=== PATIENT | male | born 1935 | race Asian ===

== ENCOUNTER 2021-02-01 17:23 | Inpatient (IN) | payer OTHER ==
[2021-02-01] MEDS ORDERED: morphine CARPU-JECT 2 MG/1 ML DISP.SYRIN IVPUSH ONE (18:27)
[2021-02-01] MEDS ORDERED: MORPHINE SULFATE 2 MG/ML VIAL ONE (18:43)
[2021-02-01] MEDS ORDERED: HYDROmorphone HCL CARPU-JECT 2 MG/1 ML DISP.SYRIN IVPUSH ONE ×2 (19:00→20:37)
[2021-02-01 19:03] LABS: VENOUS BASE EXCESS -1.5 mmol/L (-2-2); VENOUS O2 SATURATION 84.1 % (70-80); VENOUS PH 7.371 (7.310-7.410)
[2021-02-01 19:11] LABS: BASO % 0.1 % (0-2.0); HEMATOCRIT 42.1 % (35.4-49); LYMPH % 4.5 % (8-40); MCH 30.8 pg (25.7-33.7); MCHC 33.3 g/dl (32.0-35.9); MEAN CELL VOLUME 92.6 fl (80-96); MEAN PLT VOLUME 9.1 fl (7.5-11.1); MONO % 6.9 % (3.8-10.2); NEUT % 88.5 % (42.8-82.8); PLATELET COUNT 182 K/MM3 (134-434); RBC 4.55 M/mm3 (4.00-5.60); RDW 14.2 % (11.9-15.9)
[2021-02-01] MEDS ORDERED: HYDROmorphone HCl 2 MG/ML VIAL ONE ×2 (19:18→20:52)
[2021-02-01 19:20] LABS: CHLORIDE 105 mmol/L (98-107); SODIUM 137 mmol/L (136-145)
[2021-02-01 19:21] LABS: INR 0.98 (0.83-1.09); PROTHROMBIN TIME (PATIENT) 12.1 SEC (9.7-13.0)
[2021-02-01 19:23] LABS: ACTIVATED PTT 28.5 SECONDS (25.2-36.5); ALBUMIN 4.1 g/dl (3.4-5.0); ANION GAP 7 MMOL/L (8-16); BLOOD UREA NITROGEN 26.7 mg/dL (7-18); CALCIUM 9.7 mg/dL (8.5-10.1); CO2 25 mmol/L (21-32); GLUCOSE,RANDOM 138 mg/dL (74-106); LIPASE 92 U/L (73-393)
[2021-02-01 19:25] LABS: SGPT/ALT 24 U/L (13-61)
[2021-02-01 19:27] LABS: BILIRUBIN,TOTAL 1.1 mg/dL (0.2-1); SGOT/AST 15 U/L (15-37); TOT PROT 7.6 g/dl (6.4-8.2)
[2021-02-01 19:29] LABS: ALK PHOS 59 U/L (45-117)
[2021-02-01 19:55] LABS: EPI CELLS 3 /uL (0-25.1); HYALINE CASTS 1 /uL (0-3.1); URINE APPEARANCE CLEAR; URINE BACTERIA 4 /uL (0-1359); URINE BILIRUBIN NEGATIVE (NEGATIVE); URINE COLOR YELLOW; URINE GLUCOSE (UA) 2+ (NEGATIVE); URINE KETONE TRACE (NEGATIVE); URINE LEUK ESTERASE NEGATIVE (NEGATIVE); URINE NITRITE NEGATIVE (NEGATIVE); URINE PROTEIN NEGATIVE (NEGATIVE); URINE RBC 15 /uL (0-23.9); URINE UROBILINOGEN 0.2 mg/dL (0.2-1.0); URINE WBC 12 /uL (0-25.8)
[2021-02-01] MEDS ORDERED: MEROPENEM 1 GM in DEXTROSE 5%-WATER 100 ML IVPB ONE (21:03)
[2021-02-01] MEDS ORDERED: SODIUM CHLORIDE 0.9% 500 ML INFUS.BAG IV ONE (21:09)
[2021-02-01] MEDS ORDERED: MEROPENEM 1 GM VIAL (RESTRICTED TO ID) IVPB ONE (21:11)
[2021-02-01] MEDS ORDERED: ONDANSETRON 4 MG/2 ML VIAL IVPUSH ONE (21:56)
[2021-02-01] MEDS ORDERED: ONDANSETRON 4 MG/2 ML VIAL ONE (22:00)
[2021-02-01] MEDS ORDERED: LACTATED RINGERS SOLUTION 1,000 ML IV SCH (23:00)
[2021-02-01] MEDS ORDERED: ACETAMINOPHEN 1000 MG/100 ML VIAL (NON FORMULARY) IVPB PRN (23:02)
[2021-02-02] MEDS: SODIUM CHLORIDE 1,000 ML IV SCH ×2 (00:35→23:55)
[2021-02-02] MEDS ORDERED: HYDROmorphone HCl 2 MG/ML VIAL ONE ×3 (06:11→20:37)
[2021-02-02] MEDS: HYDROmorphone HCL CARPU-JECT 2 MG/1 ML DISP.SYRIN IVPUSH PRN ×3 (06:17→20:40)
[2021-02-02] MEDS: PANTOPRAZOLE 40 MG TABLET PO SCH (07:00)
[2021-02-02 07:49] LABS: HEMOGLOBIN 13.2 GM/dL (11.7-16.9); MCH 31.3 pg (25.7-33.7); MCHC 33.8 g/dl (32.0-35.9); MEAN CELL VOLUME 92.4 fl (80-96); MEAN PLT VOLUME 9.2 fl (7.5-11.1); PLATELET COUNT 157 K/MM3 (134-434); RBC 4.22 M/mm3 (4.00-5.60); RDW 14.5 % (11.9-15.9); WHITE BLOOD COUNT 15.6 K/mm3 (4.0-10.0)
[2021-02-02 08:08] LABS: CALCIUM 8.6 mg/dL (8.5-10.1)
[2021-02-02 08:09] LABS: ALBUMIN 3.4 g/dl (3.4-5.0); BLOOD UREA NITROGEN 24.3 mg/dL (7-18); MAGNESIUM 2.1 mg/dL (1.8-2.4)
[2021-02-02 08:13] LABS: BILIRUBIN,TOTAL 1.4 mg/dL (0.2-1); CREATININE 0.9 mg/dL (0.55-1.3); PHOSPHOROUS 3.1 mg/dL (2.5-4.9); TOT PROT 6.4 g/dl (6.4-8.2)
[2021-02-02] MEDS: ATENOLOL 50 MG TABLET (FP) PO SCH (10:50)
[2021-02-02] MEDS: LOSARTAN POTASSIUM 50 MG TABLET PO SCH (11:05)
[2021-02-02] MEDS ORDERED: PANTOPRAZOLE 40 MG TABLET ONE (12:11)
[2021-02-02] MEDS ORDERED: LOSARTAN POTASSIUM 50 MG TABLET ONE (12:12)
[2021-02-02] MEDS ORDERED: ACETAMINOPHEN INJECTION 100 ML IVPB ONE (14:12)
[2021-02-02] MEDS ORDERED: MEROPENEM 1 GM VIAL (RESTRICTED TO ID) IVPB ONE (20:44)
[2021-02-02] MEDS: MEROPENEM 1 GM in DEXTROSE 5%-WATER 100 ML IVPB SCH (20:48)
[2021-02-02] MEDS: ROSUVASTATIN CA 5 MG TABLET (FP) PO SCH (22:20)
[2021-02-02] MEDS: ACETAMINOPHEN 1000 MG/100 ML VIAL (NON FORMULARY) IVPB PRN (23:30)
[2021-02-03] MEDS ORDERED: MEROPENEM 1 GM VIAL (RESTRICTED TO ID) IVPB ONE ×3 (01:25→18:05)
[2021-02-03] MEDS ORDERED: DEXTROSE 5%-WATER 100 ML IVPB ONE ×3 (01:25→18:06)
[2021-02-03] MEDS: MEROPENEM 1 GM in DEXTROSE 5%-WATER 100 ML IVPB SCH ×3 (01:26→18:22)
[2021-02-03] MEDS ORDERED: HYDROmorphone HCl 2 MG/ML VIAL IVPUSH PRN (01:48)
[2021-02-03] MEDS: PANTOPRAZOLE 40 MG TABLET PO SCH (06:38)
[2021-02-03 08:31] VITALS: BMI 23.4
[2021-02-03] MEDS: ACETAMINOPHEN 1000 MG/100 ML VIAL (NON FORMULARY) IVPB PRN (09:44)
[2021-02-03] MEDS: LOSARTAN POTASSIUM 50 MG TABLET PO SCH (10:03)
[2021-02-03] MEDS ORDERED: PT OWN MED DRAWER 7, Y5N ONE (10:21)
[2021-02-03] MEDS: ATENOLOL 50 MG TABLET (FP) PO SCH (10:27)
[2021-02-03 10:35] LABS: HEMATOCRIT 42.2 % (35.4-49); HEMOGLOBIN 14.2 GM/dL (11.7-16.9); MCH 31.2 pg (25.7-33.7); MCHC 33.6 g/dl (32.0-35.9); MEAN CELL VOLUME 92.8 fl (80-96); MEAN PLT VOLUME 9.6 fl (7.5-11.1); PLATELET COUNT 149 K/MM3 (134-434); RBC 4.55 M/mm3 (4.00-5.60); RDW 14.6 % (11.9-15.9); WHITE BLOOD COUNT 16.1 K/mm3 (4.0-10.0)
[2021-02-03 10:40] LABS: INR 1.3 (0.83-1.09); PROTHROMBIN TIME (PATIENT) 15.9 SEC (9.7-13.0)
[2021-02-03 10:54] LABS: ALBUMIN 3.2 g/dl (3.4-5.0); BLOOD UREA NITROGEN 27.1 mg/dL (7-18); CALCIUM 8.7 mg/dL (8.5-10.1); MAGNESIUM 2.3 mg/dL (1.8-2.4)
[2021-02-03 10:57] LABS: PHOSPHOROUS 1.8 mg/dL (2.5-4.9)
[2021-02-03 10:58] LABS: BILIRUBIN,TOTAL 1.7 mg/dL (0.2-1); TOT PROT 6.4 g/dl (6.4-8.2)
[2021-02-03] MEDS ORDERED: HYDROmorphone HCl 2 MG/ML VIAL IVPB ONE (14:47)
[2021-02-03] MEDS: DOCUSATE SODIUM 100 MG CAPSULE (FP) PO SCH (15:09)
[2021-02-03] MEDS: oxyCODONE HCL 5 MG TABLET PO PRN ×2 (16:46→23:14)
[2021-02-03] MEDS: SODIUM CHLORIDE 1,000 ML IV SCH (19:30)
[2021-02-03] MEDS: SODIUM HYPOCHLORITE 0.5% 473 ML- BULK BOTTLE TP SCH (22:35)
[2021-02-03] MEDS: ROSUVASTATIN CA 5 MG TABLET (FP) PO SCH (22:36)
[2021-02-03] MEDS: APIXABAN 5 MG TABLET PO SCH (23:51)
[2021-02-04] MEDS ORDERED: DEXTROSE 5%-WATER 100 ML IVPB ONE ×4 (01:18→17:07)
[2021-02-04] MEDS ORDERED: MEROPENEM 1 GM VIAL (RESTRICTED TO ID) IVPB ONE ×4 (01:18→17:06)
[2021-02-04] MEDS: MEROPENEM 1 GM in DEXTROSE 5%-WATER 100 ML IVPB SCH ×3 (01:34→17:40)
[2021-02-04] MEDS: oxyCODONE HCL 5 MG TABLET PO PRN ×5 (03:14→23:37)
[2021-02-04] MEDS: PANTOPRAZOLE 40 MG TABLET PO SCH (06:11)
[2021-02-04 07:28] LABS: HEMATOCRIT 38.5 % (35.4-49); HEMOGLOBIN 12.9 GM/dL (11.7-16.9); MCH 31.2 pg (25.7-33.7); MCHC 33.5 g/dl (32.0-35.9); MEAN PLT VOLUME 9.6 fl (7.5-11.1); PLATELET COUNT 139 K/MM3 (134-434); RBC 4.14 M/mm3 (4.00-5.60); RDW 14.5 % (11.9-15.9); WHITE BLOOD COUNT 12.1 K/mm3 (4.0-10.0)
[2021-02-04 07:49] LABS: BLOOD UREA NITROGEN 23.4 mg/dL (7-18); CALCIUM 8.4 mg/dL (8.5-10.1)
[2021-02-04 07:50] LABS: ALBUMIN 2.7 g/dl (3.4-5.0); MAGNESIUM 2.2 mg/dL (1.8-2.4)
[2021-02-04 07:52] LABS: CREATININE 0.9 mg/dL (0.55-1.3)
[2021-02-04 07:54] LABS: BILIRUBIN,TOTAL 1.5 mg/dL (0.2-1); TOT PROT 5.9 g/dl (6.4-8.2)
[2021-02-04 08:04] LABS: PHOSPHOROUS 1.2 mg/dL (2.5-4.9)
[2021-02-04] MEDS: ATENOLOL 50 MG TABLET (FP) PO SCH (11:15)
[2021-02-04] MEDS: LOSARTAN POTASSIUM 50 MG TABLET PO SCH (11:16)
[2021-02-04] MEDS: DOCUSATE SODIUM 100 MG CAPSULE (FP) PO SCH (11:16)
[2021-02-04] MEDS: SODIUM HYPOCHLORITE 0.5% 473 ML- BULK BOTTLE TP SCH (13:00)
[2021-02-04] MEDS ORDERED: NAPH,MB-DB/K PH,MBDB POWDER PACKET PO ONE (13:54)
[2021-02-04] MEDS: ROSUVASTATIN CA 5 MG TABLET (FP) PO SCH (21:49)
[2021-02-04] MEDS: APIXABAN 5 MG TABLET PO SCH (23:06)
[2021-02-05] MEDS ORDERED: DEXTROSE 5%-WATER 100 ML IVPB ONE ×3 (00:38→16:36)
[2021-02-05] MEDS ORDERED: MEROPENEM 1 GM VIAL (RESTRICTED TO ID) IVPB ONE ×3 (00:38→16:36)
[2021-02-05] MEDS: MEROPENEM 1 GM in DEXTROSE 5%-WATER 100 ML IVPB SCH ×3 (01:05→17:04)
[2021-02-05] MEDS: PANTOPRAZOLE 40 MG TABLET PO SCH (06:28)
[2021-02-05 07:20] LABS: HEMATOCRIT 37.1 % (35.4-49); HEMOGLOBIN 12.7 GM/dL (11.7-16.9); MCH 31.6 pg (25.7-33.7); MCHC 34.3 g/dl (32.0-35.9); MEAN CELL VOLUME 92.2 fl (80-96); MEAN PLT VOLUME 9.2 fl (7.5-11.1); PLATELET COUNT 145 K/MM3 (134-434); RBC 4.03 M/mm3 (4.00-5.60); RDW 14.4 % (11.9-15.9); WHITE BLOOD COUNT 8.5 K/mm3 (4.0-10.0)
[2021-02-05 07:38] LABS: ALBUMIN 2.6 g/dl (3.4-5.0); CALCIUM 8.1 mg/dL (8.5-10.1)
[2021-02-05 07:39] LABS: BLOOD UREA NITROGEN 17.6 mg/dL (7-18); MAGNESIUM 2.1 mg/dL (1.8-2.4)
[2021-02-05 07:42] LABS: CREATININE 0.7 mg/dL (0.55-1.3); PHOSPHOROUS 1.7 mg/dL (2.5-4.9)
[2021-02-05 07:43] LABS: BILIRUBIN,TOTAL 1.2 mg/dL (0.2-1); TOT PROT 5.6 g/dl (6.4-8.2)
[2021-02-05] MEDS ORDERED: NAPH,MB-DB/K PH,MBDB POWDER PACKET PO ONE (09:00)
[2021-02-05] MEDS: DOCUSATE SODIUM 100 MG CAPSULE (FP) PO SCH (09:32)
[2021-02-05] MEDS: APIXABAN 5 MG TABLET PO SCH ×2 (09:32→21:53)
[2021-02-05] MEDS: LOSARTAN POTASSIUM 50 MG TABLET PO SCH (09:33)
[2021-02-05] MEDS: oxyCODONE HCL 5 MG TABLET PO PRN ×2 (09:35→17:04)
[2021-02-05] MEDS: SODIUM HYPOCHLORITE 0.5% 473 ML- BULK BOTTLE TP SCH (09:36)
[2021-02-05] MEDS: ATENOLOL 50 MG TABLET (FP) PO SCH (09:36)
[2021-02-05] MEDS ORDERED: POTASSIUM CHLORIDE ORAL LIQUID 20 MEQ/15 ML PO ONE (10:00)
[2021-02-05] MEDS ORDERED: POTASSIUM CHLORIDE ORAL LIQUID 20 MEQ/15 ML PO SCH (10:00)
[2021-02-05] MEDS ORDERED: METOPROLOL TARTRATE 25 MG TABLET (FP) PO SCH (10:00)
[2021-02-05] MEDS: POLYETHYLENE GLYCOL 3350 119 GM BTL PO SCH (10:49)
[2021-02-05] MEDS: SENNOSIDES 8.6MG TABLET (FP) PO SCH ×2 (10:49→21:53)
[2021-02-05] MEDS: SOTALOL HCL 80 MG TABLET (FP) PO SCH ×2 (10:49→21:53)
[2021-02-05] MEDS: KCL 10 MEQ IVPB 10 MEQ/100 ML INFUS.BAG IVPB SCH ×2 (10:49→12:22)
[2021-02-05] MEDS: ROSUVASTATIN CA 5 MG TABLET (FP) PO SCH (21:53)
[2021-02-06] MEDS ORDERED: MEROPENEM 1 GM VIAL (RESTRICTED TO ID) IVPB ONE ×3 (02:36→16:17)
[2021-02-06] MEDS ORDERED: DEXTROSE 5%-WATER 100 ML IVPB ONE ×3 (02:37→16:17)
[2021-02-06] MEDS: MEROPENEM 1 GM in DEXTROSE 5%-WATER 100 ML IVPB SCH ×3 (02:44→17:06)
[2021-02-06] MEDS: PANTOPRAZOLE 40 MG TABLET PO SCH ×2 (06:00→09:28)
[2021-02-06] MEDS ORDERED: METOPROLOL TARTRATE 5 MG/5 ML VIAL IVPUSH PRN (06:53)
[2021-02-06] MEDS ORDERED: oxyCODONE HCL 5 MG TABLET PO PRN ×2 (06:53)
[2021-02-06 07:47] LABS: HEMATOCRIT 38.1 % (35.4-49); HEMOGLOBIN 12.9 GM/dL (11.7-16.9); MCH 31.2 pg (25.7-33.7); MCHC 33.8 g/dl (32.0-35.9); MEAN CELL VOLUME 92.4 fl (80-96); MEAN PLT VOLUME 9.3 fl (7.5-11.1); PLATELET COUNT 175 K/MM3 (134-434); RBC 4.12 M/mm3 (4.00-5.60); RDW 14.4 % (11.9-15.9); WHITE BLOOD COUNT 7.9 K/mm3 (4.0-10.0)
[2021-02-06 08:04] LABS: ALBUMIN 2.8 g/dl (3.4-5.0); BLOOD UREA NITROGEN 17.5 mg/dL (7-18); CALCIUM 8.6 mg/dL (8.5-10.1); MAGNESIUM 2.2 mg/dL (1.8-2.4)
[2021-02-06 08:07] LABS: CREATININE 0.8 mg/dL (0.55-1.3); PHOSPHOROUS 2.8 mg/dL (2.5-4.9)
[2021-02-06] MEDS: DOCUSATE SODIUM 100 MG CAPSULE (FP) PO SCH (09:29)
[2021-02-06] MEDS: LOSARTAN POTASSIUM 50 MG TABLET PO SCH (09:29)
[2021-02-06] MEDS: APIXABAN 5 MG TABLET PO SCH ×2 (09:29→21:29)
[2021-02-06] MEDS: SOTALOL HCL 80 MG TABLET (FP) PO SCH ×2 (09:29→21:29)
[2021-02-06] MEDS: SENNOSIDES 8.6MG TABLET (FP) PO SCH ×2 (09:29→21:29)
[2021-02-06] MEDS: SODIUM HYPOCHLORITE 0.5% 473 ML- BULK BOTTLE TP SCH (09:29)
[2021-02-06] MEDS: POLYETHYLENE GLYCOL 3350 119 GM BTL PO SCH (13:49)
[2021-02-06] MEDS ORDERED: ACETAMINOPHEN 325 MG TABLET (FP) ONE (15:39)
[2021-02-06] MEDS: ACETAMINOPHEN 325 MG TABLET (FP) PO PRN ×2 (16:00→21:28)
[2021-02-06] MEDS ORDERED: ROSUVASTATIN CA 5 MG TABLET (FP) PO SCH (22:00)
[2021-02-07] MEDS ORDERED: DEXTROSE 5%-WATER 100 ML IVPB ONE ×2 (00:51→09:37)
[2021-02-07] MEDS ORDERED: MEROPENEM 1 GM VIAL (RESTRICTED TO ID) IVPB ONE ×2 (00:51→09:36)
[2021-02-07] MEDS: MEROPENEM 1 GM in DEXTROSE 5%-WATER 100 ML IVPB SCH ×2 (01:25→09:38)
[2021-02-07] MEDS: PANTOPRAZOLE 40 MG TABLET PO SCH (07:07)
[2021-02-07 07:12] LABS: HEMATOCRIT 38.2 % (35.4-49); HEMOGLOBIN 13.5 GM/dL (11.7-16.9); MCH 31.9 pg (25.7-33.7); MCHC 35.3 g/dl (32.0-35.9); MEAN CELL VOLUME 90.3 fl (80-96); MEAN PLT VOLUME 8.6 fl (7.5-11.1); PLATELET COUNT 214 K/MM3 (134-434); RBC 4.23 M/mm3 (4.00-5.60); RDW 13.8 % (11.9-15.9); WHITE BLOOD COUNT 7.1 K/mm3 (4.0-10.0)
[2021-02-07 07:35] LABS: ALBUMIN 2.8 g/dl (3.4-5.0); BILIRUBIN,TOTAL 0.8 mg/dL (0.2-1); CALCIUM 8.7 mg/dL (8.5-10.1); TOT PROT 6.2 g/dl (6.4-8.2)
[2021-02-07 07:37] LABS: CREATININE 0.8 mg/dL (0.55-1.3)
[2021-02-07 07:38] LABS: BLOOD UREA NITROGEN 15.2 mg/dL (7-18); PHOSPHOROUS 3.5 mg/dL (2.5-4.9)
[2021-02-07 07:39] LABS: MAGNESIUM 2.3 mg/dL (1.8-2.4)
[2021-02-07] MEDS: SENNOSIDES 8.6MG TABLET (FP) PO SCH ×2 (09:38→09:44)
[2021-02-07] MEDS: SOTALOL HCL 80 MG TABLET (FP) PO SCH (09:38)
[2021-02-07] MEDS: DOCUSATE SODIUM 100 MG CAPSULE (FP) PO SCH ×2 (09:39→09:44)
[2021-02-07] MEDS: APIXABAN 5 MG TABLET PO SCH (09:39)
[2021-02-07] MEDS: LOSARTAN POTASSIUM 50 MG TABLET PO SCH (09:39)
[2021-02-07] MEDS: POLYETHYLENE GLYCOL 3350 119 GM BTL PO SCH ×2 (09:40→09:44)
[2021-02-07] MEDS ORDERED: SULFAMETHOXAZOLE/TRIMETHOPRIM 400MG/80MG S.S. TABLET PO SCH (10:00)
[2021-02-07 10:11] VITALS: TEMP 98.3
[2021-02-07] MEDS ORDERED: SULFAMETHOXAZOLE/TRIMETHOPRIM 800MG/160MG D.S. TABLET PO SCH (10:30)
[2021-02-07 13:55] VITALS: BP 135/67; PULSE 76
== END 2021-02-07 18:21 | disposition home health service (06) | DRG 446 ==
LOC: JER 17:23 → JERBED 21:35 → J5S 02-02 21:30 → J4W 02-03 17:01
PROVIDERS: ADMIT Hospitalist; ATTEND Student in an Organized Health Care Education/Training Program
PROC: 0F9430Z Drainage of Gallbladder with Drainage Device, Percutaneous Approach (ICD-10-PCS; principal; 2021-02-03)
DX: K81.0 Acute cholecystitis (principal); I48.0 Paroxysmal atrial fibrillation; I25.10 Atherosclerotic heart disease of native coronary artery without angina pectoris; I10 Essential (primary) hypertension; E78.00 Pure hypercholesterolemia, unspecified; K21.9 Gastro-esophageal reflux disease without esophagitis; E78.5 Hyperlipidemia, unspecified; D72.829 Elevated white blood cell count, unspecified
CPT/HCPCS: 36415; 47490; 76705-TC; 80053; 81003; 82550; 82803; 82962; 83036; 83605; 83690; 83735; 84100; 84443; 84484; 85025; 85027; 85610; 85730; 86850; 86900; 86901; 87070; 87075; 87086; 87102; 87116; 87186; 87205; 87206; 87210; 93005; 93010; 93306-TC; 99285-25; C9803; J0131; U0003; U0005

== ENCOUNTER 2021-04-04 09:51 | Emergency (ER) | payer OTHER ==
[2021-04-04 10:08] VITALS: BMI 20.9
[2021-04-04 10:25] VITALS: BP 135/79; PULSE 74; TEMP 98.7
== END 2021-04-04 14:07 | disposition home or self-care (01) ==
LOC: JER 09:51
DX: T85.590A Other mechanical complication of bile duct prosthesis, initial encounter (principal)
CPT/HCPCS: 99284-25